=== PATIENT | male | born 1985 | race Caucasian/White ===

== ENCOUNTER 2019-09-07 09:24 | Emergency (ER) | payer OTHER ==
[2019-09-08 12:09] LABS: SARS-CoV-2 MS2 Positive; SARS-CoV-2 N Gene Negative; SARS-CoV-2 S Gene Negative; SARS-CoV-2 orf1ab Negative
== END 2019-09-07 10:02 | disposition home or self-care (01) ==
LOC: ERS 09:24
DX: R09.81 Nasal congestion (principal); Z20.828 Contact with and (suspected) exposure to other viral communicable diseases
CPT/HCPCS: 87635; 99283; U0003

== ENCOUNTER 2023-03-17 07:34 | Outpatient (CLI) | payer OTHER | END 2023-03-17 07:35 | disposition home or self-care (01) | LOC: ULT 07:34 | PROVIDERS: ATTEND Nurse Practitioner Family | DX: K70.9 Alcoholic liver disease, unspecified (principal); K76.0 Fatty (change of) liver, not elsewhere classified; R16.2 Hepatomegaly with splenomegaly, not elsewhere classified | CPT/HCPCS: 76700 ==